=== PATIENT | male | born 1990 | race Caucasian/White ===

== ENCOUNTER 2019-10-11 01:00 | Emergency (ER) | payer OTHER ==
[~2019-10-11] VITALS: Ht 182.9 cm; Wt 90.7 kg
[~2019-10-11 01:00] MED LIST: BACTRIM DS TAB1 EACH PO; CLEOCIN HCL300 MG PO; IBUPROFEN 800800 M1 PO; NO HOME MEDS; NORCO 5-325 TA1 EACH PO; NORFLEX100 MG PO; ULTRAM 50MG TAB50 MG PO; VENTOLIN17 GM INH; ZPAK PO
[2019-10-11 01:36] LABS: HEMATOCRIT 44.2 % (42.0-52.0); MCH 28.8 pg (26.0-34.0); MCV 84.8 fL (80.0-100.0); PLATELET COUNT 251 thou/uL (150-400); RBC 5.21 mil/uL (4.50-6.00); RDW 13.3 % (10.5-14.5); WBC 11.6 thou/uL (4.0-11.0)
[2019-10-11 01:43] LABS: ANION GAP 9 mmol/L (7-16); BUN 12 mg/dL (7-18); CALCIUM 8.7 mg/dL (8.5-10.1); CHLORIDE 94 mmol/L (98-107); CO2 29 mmol/L (21-32); CREATININE 1.2 mg/dL (0.7-1.3); POTASSIUM 3.9 mmol/L (3.5-5.1); SODIUM 132 mmol/L (136-145)
[2019-10-11 01:44] LABS: GLUCOSE 107 mg/dL (74-106)
[2019-10-11 01:53] LABS: ALBUMIN 3.8 g/dL (3.4-5.0); DIRECT BILIRUBIN < 0.1 mg/dL (<0.1-0.2); SGPT 32 U/L (30-65); TOTAL BILIRUBIN 0.3 mg/dL (<0.1-1.0); TOTAL PROTEIN 7.6 g/dL (6.4-8.2); TROPONIN-I <0.06 ng/mL (<0.06)
[2019-10-11 02:10] LABS: ABSOLUTE NEUTROPHILS 6.6 thou/uL (1.4-8.2)
[2019-10-11 02:25] LABS: SGOT 19 U/L (15-37)
[2019-10-11] MEDS ORDERED: ZOFRAN ODT4 MG PO (03:42)
[2019-10-11] MEDS ORDERED: IBUPROFEN 800800 M1 PO (03:42)
[2019-10-11 03:49] VITALS: BP 109/58
--- NOTE | 2019-10-11 11:17 | EKG ---
[facility] [place] [address] ELECTROCARDIOGRAM REPORT Name: DMITRIY MCKENNA Room #: DEP [facility]#: [id number] Admission: 10/11/19 Attend Phys: Discharge: 10/11/19 Date of : 86 Report #: [id number] THIS REPORT FOR: cc: BELTRAN - No family physician/PCP BELTRAN - [place] family physician/PCP Gaurav Garibay MD [facility] THIS REPORT FOR: //name// [facility] ED Test Date: 2019-10-11 Test Time: 01:08:20 Pat Name: DMITRIY MCKENNA Department: Room: Gender: Associate Media Director: [facility] : 1990 Requested By: Lacie Sellers Order Number: [id number] MD: Gaurav Garibay Measurements Intervals [place] Rate: 100 P: 10 ID: [id number] QRS: 23 QRSD: 104 T: 58 QT: 313 QTc: 404 Interpretive Statements Sinus tachycardia RSR' in V1 or V2, right VCD Compared to ECG 04/05/2009 18:39:21 RSR' in V1 or V2 now present Sinus bradycardia no longer present Electronically Signed On 10-11-2019 11:16:00 CDT by Gaurav Garibay [email or web address] <ELECTRONICALLY SIGNED> By: Gaurav Garibay MD, [facility] 10/11/19 [id number] Gaurav Garibay MD, [facility] /EPI
== END 2019-10-11 03:56 | disposition home or self-care (01) ==
LOC: ER 01:00
PROVIDERS: Emergency Medicine
DX: S06.0X0A Concussion without loss of consciousness, initial encounter (principal); R07.89 Other chest pain; R11.2 Nausea with vomiting, unspecified; R06.02 Shortness of breath; F17.210 Nicotine dependence, cigarettes, uncomplicated; Z98.890 Other specified postprocedural states; Z88.1 Allergy status to other antibiotic agents; W22.8XXA Striking against or struck by other objects, initial encounter; Y93.89 Activity, other specified; Y92.89 Other specified places as the place of occurrence of the external cause; Y99.8 Other external cause status

== ENCOUNTER 2021-05-23 10:48 | Emergency (ER) | payer OTHER ==
[~2021-05-23] VITALS: Ht 182.9 cm; Wt 113.4 kg
[~2021-05-23 10:48] MED LIST changes: +ZOFRAN ODT4 MG PO
[2021-05-23 11:47] LABS: ABSOLUTE NEUTROPHILS 7.8 thou/uL (1.4-8.2); BASOPHILS 0.9 % (0.0-2.0); HEMATOCRIT 42.1 % (42.0-52.0); HEMOGLOBIN 14.2 gm/dL (14.0-18.0); LYMPHOCYTES 13.7 % (24.0-44.0); MCHC 33.6 g/dL (28.0-37.0); MCV 83.3 fL (80.0-100.0); MONOCYTES 12.6 % (1.0-8.0); PLATELET COUNT 202 thou/uL (150-400); POLYS 71.8 % (36.0-66.0); RBC 5.06 mil/uL (4.50-6.00); RDW 13.3 % (10.5-14.5); WBC 10.8 thou/uL (4.0-11.0)
[2021-05-23 11:54] LABS: CALCIUM 9.1 mg/dL (8.5-10.1); POTASSIUM 4.1 mmol/L (3.5-5.1)
[2021-05-23] MEDS ORDERED: MOBIC7.5 MG PO (12:53)
[2021-05-23] MEDS ORDERED: ZPAK PO (12:53)
[2021-05-23] MEDS ORDERED: MEDROLDOSEPACK PO (12:53)
[2021-05-23 13:15] VITALS: BP 153/100
== END 2021-05-23 13:16 | disposition home or self-care (01) ==
LOC: ER 10:48
PROVIDERS: Emergency Medicine; Nurse Practitioner
DX: S20.219A Contusion of unspecified front wall of thorax, initial encounter (principal); Z20.822 Contact with and (suspected) exposure to COVID-19; J02.0 Streptococcal pharyngitis; F17.210 Nicotine dependence, cigarettes, uncomplicated; Z98.890 Other specified postprocedural states; Z79.891 Long term (current) use of opiate analgesic; Z79.899 Other long term (current) drug therapy; Z88.8 Allergy status to other drugs, medicaments and biological substances; V29.3XXA Motorcycle rider (driver) (passenger) injured in unspecified nontraffic accident, initial encounter; Y93.89 Activity, other specified; Y92.89 Other specified places as the place of occurrence of the external cause; Y99.8 Other external cause status